=== PATIENT | male | born 1950 | race Caucasian/White ===

== ENCOUNTER 2018-08-04 05:07 | Inpatient (IN) ==
[2018-08-04] MEDS ORDERED: Chlorhexidine 4% Topical 120 APPLIC/120 ML Bottle TOPICAL SCH (05:45)
[2018-08-04] MEDS ORDERED: Chlorhexidine Gluconate 2% 1 Pack (2 Cloths) TOPICAL ONE (06:00)
[2018-08-04] MEDS ORDERED: Metoprolol Tartrate 25 MG Tablet PO ONE (06:00)
[2018-08-04] MEDS ORDERED: Sodium Chlor 0.9% Inj 500 ML IV.CONT ONE (06:00)
[2018-08-04] MEDS ORDERED: ceFAZolin 2 GM Premix Inj 2 GM/50 ML PIGGYBACK IV.SIG SCH (06:00)
[2018-08-04] MEDS ORDERED: Famotidine PF Inj 20 MG/2 ML Vial ONE (06:17)
[2018-08-04] MEDS ORDERED: Propofol Inj 500 MG/50 ML Vial ONE (06:17)
[2018-08-04] MEDS ORDERED: Ropivacaine 0.5% PF Inj 20 ML Vial ONE (06:22)
[2018-08-04] MEDS ORDERED: fentaNYL Citrate Inj 250 MCG/5 ML Ampul ONE (06:41)
[2018-08-04] MEDS ORDERED: fentaNYL Citrate Inj 100 MCG/2 ML Ampul ONE (06:41)
[2018-08-04] MEDS ORDERED: Phenylephrine/NS 1000 MCG/10ML Syringe IV.PUSH ONE (06:41)
[2018-08-04] MEDS ORDERED: Lidocaine PF 1% Inj 5 ML Syringe OTHER ONE (06:41)
[2018-08-04] MEDS ORDERED: SODIUM CHLOR 0.9% IV.SIG SCH ×2 (07:00→10:00)
[2018-08-04] MEDS ORDERED: TRANEXAMIC ACID IV.SIG SCH ×2 (07:00→10:00)
[2018-08-04] MEDS ORDERED: Sodium Chlor 0.9% Inj 80 ML, Bupivacaine Liposo PF 1.3% Inj 20 ML P-ARTICULR SCH ×2 (07:00)
[2018-08-04] MEDS ORDERED: Sugammadex Inj 200 MG/2 ML Vial IV.PUSH ONE (08:58)
[2018-08-04] MEDS ORDERED: Acetaminophen 325 MG Tablet PO PRN (10:05)
[2018-08-04] MEDS ORDERED: Bisacodyl 10 MG Supp RECTAL PRN (10:05)
[2018-08-04] MEDS ORDERED: Tranexamic Acid Inj 0 MG in Sodium Chlor 0.9% Inj 100 ML IV.SIG ONE (10:05)
[2018-08-04] MEDS ORDERED: Post-op Orders (for Pharmacy) OTHER STA (10:05)
[2018-08-04] MEDS ORDERED: Aluminum/Magnesium/Simethacone Susp 30 ML UDC PO PRN (10:05)
--- NOTE | 2018-08-04 10:31 | P.OP ---
- Preoperative Diagnosis (1) Primary osteoarthritis of right knee Comment: [place] allergy - Postoperative Diagnosis (1) Primary osteoarthritis of right knee Comment: [place] allergy Date of procedure: 08/04/18 Procedure: Right total knee arthroplasty using Merino and Nephew Journey, cemented. Anesthesia: GETA, regional (Adductor canal block), local (Exparel) Surgeon: Lázaro Arnold MD Roving Weight Gauger: LONG Leigh Estimated blood loss (mL): 200 Tourniquet time (min): 0 Pathology: none sent Operation and Findings: Indications and Findings: This 68-year-old man has had long-standing right knee pain nonresponsive to conservative measures including ambulatory aids, intra- articular corticosteroids, analgesics, activity modification, exercise. He cannot take nonsteroidal anti-inflammatory agents because of anticoagulation. He has a 2-block ambulation tolerance. He has difficulty standing from a seated position and ascending and descending stairs. He has giving way. He has swelling. He also has a history of a cobalt allergy. Physical findings showed genu valgum with medial laxity, medial tenderness and crepitation throughout the entire range of motion. There was a large effusion. X-rays showed severe osteoarthritis with loss of articular cartilage to [id number] in the medial compartment with osteophytes and eburnation. Operative findings: There was severe osteoarthritis in the right knee with loss of articular cartilage to [id number] in the medial compartment, irregularity in the patellofemoral and lateral compartments, osteophytes and subchondral sclerosis. The prosthesis used was a Merino and Nephew Journey prosthesis. The femur was a size 6 bicruciate stabilized Journey II BCS Oxinium. The tibial baseplate was a size 6 Journey with a right size 5-6, 11 mm Journey II BCS XLPE spacer. The patella was a size 35 mm oval Thuy II resurfacing. After a regional anesthetic by adductor canal block was administered, the patient was brought to the clean-air operating suite. A general endotracheal anesthetic was administered. The position was supine with a small bolster under the hip on the operative side. A pneumatic tourniquet was applied to the upper thigh. The lower extremity was prepped with alcohol, Hibiclens and ChloraPrep and draped in the usual manner with the knee draped free. An appropriate timeout procedure was carried out. An incision was made from about 3 fingerbreadths above the superior medial pole of patella down the tibial tubercle on the medial side. The incision was deepened through the subcutaneous tissue to the retinacular structures which were exposed medially and laterally. A medial retinacular incision was made from the superior middle pole of patella down the tibial tubercle and up into the quadriceps tendon splitting it longitudinally and the medial one third. The patella was reflected. The infrapatellar fat pad was debulked. The anterior cruciate ligament was excised. Medial and lateral meniscectomies were initiated. A fenestration was made in the distal femur for intramedullary referencing guide. The posterior surface of the patella was excised with the oscillating saw. The distal femoral cutting guide and jig were assembled for a 5 cut. When this was in position, the cutting block was stabilized with pins. The jig was removed. The distal femoral cut was completed with the oscillating saw. The proximal tibia was exposed. The medial and lateral meniscectomies were completed.The proximal tibial cutting guide was positioned in place and stabilized with a pin for rotation. The depth of cut was verified with a stylus off the lateral side. The cutting block was stabilized with pins. The jig was removed. The depth of cut was verified and adjusted appropriately. The proximal tibial cut was made with the oscillating saw taking care to prevent injury to neurovascular and ligamentous structures. Proximal tibial bone was removed. The sizing guide was positioned in place along [place] line and the epicondylar axis and stabilized with pins. The femoral size was determined as noted above. The distal femoral cutting block was positioned in place. Anterior and posterior cuts were made followed by posterior and anterior chamfer cuts taking care to prevent injury to ligamentous structures. Osteophytes were trimmed from the distal femur. A bone plug was placed into the fenestration of the distal femur. Local anesthetic was administered with Exparel in the posterior capsule. The tibial baseplate trial was positioned in place. After verifying the appropriate size, the base plate trial was positioned in place along with its spacer. The femoral component was impacted into place. The alignment was checked. The tibial baseplate was pinned in place on the tibia. Attention was directed to the patella. The patella drill guide was positioned in place for the appropriate sized patella. Patellar drilling was carried out. The trial patella was positioned in place. The knee was taken through a range of motion which was easily 0 extension to 140. The patella trial was removed. The femoral drill holes were made. The femoral trials were removed. The tibial spacer was removed. The tibial punch was impacted through the proximal tibial punch guide. At this point, it was found that there was contamination of the insertion device for the femur. For this reason, it was elected to do a cruciate sacrificing prosthesis. The femoral component was reapplied to the femur. The reaming was carried out for this followed by the punch. The remnants of the posterior cruciate ligament were removed. Further dissection was carried out. Re-trialing was carried out. This appeared satisfactory. The cut ends of bone were cleaned with pulse lavage. Simplex cement was pressurized into the proximal aspect of the tibia after drying. The tibial baseplate was impacted into place and seated appropriately. Excess cement was trimmed. The spacer was inserted. The distal end of the femur was cleaned with pulse lavage. After drying, cement was applied to the distal end of the femur and the femoral component. The femoral component was then impacted into place and seated appropriately. Excess cement was trimmed. The posterior surface of the patella was cleaned with pulse lavage. Cement was injected into the posterior surface of the patella and the patella component. The patella component was seated with the patellar clamp and tightened appropriately. Excess cement cement was trimmed. The remainder of the Exparel was injected throughout the knee as a local anesthetic. Drains were brought out the superior lateral aspect of the suprapatellar pouch. The knee was taken through a range of motion which was comparable to the previous range of motion with excellent stability in flexion and extension and appropriate patellofemoral tracking. Wound closure commenced using #1 Vicryl interrupted ibqwxh-wz-oijhi sutures and a continuous barbed suture for the capsular and fascial structures, 2-0 Vicryl interrupted simple sutures with buried knots for the subcutaneous tissues and 4-0 Monocryl, continuous subcuticular closure for the skin. The wound was dressed with Dermabond Prineo followed by Optifoam silver impregnated dressing. Sterile soft roll with a cooling pad and Brian bandage from the base of the toes to mid thigh were then applied. The patient was transferred from the operating room to the recovery room in satisfactory condition having tolerated procedure well. Counts were correct. Specimens: None. Estimated blood loss: 200 mL
--- NOTE | 2018-08-04 10:33 | P.DCO ---
- Physical Therapy Physical Therapy: Gait training Knee: Total knee, Protocol: Right, Gait training, Full weight bearing Right Lower Extremity Weight Bearing: Weight bearing as tolerated Right Lower Extremity Range of Motion: Active ROM (Active, active assisted, passive range of motion. Range of motion goal is 0 degrees extension to 135 degrees of flexion. Range of motion achieved in the operating room was 0 degrees extension to 140 degrees of flexion.) - Nursing Nursing: Dressing changes (Do not remove Dermabond Prineo (the tape that is directly on the wound).Leave the Optifoam dressing in place for 7 days. After this, daily dressing changes will be done taking care to avoid injuring or removing the Dermabond Prineo.) Dressing changes: Other (Do not remove Dermabond Prineo (the tape that is directly on the wound).Leave the Optifoam dressing in place for 7 days. After this, daily dressing changes will be done taking care to avoid injuring or removing the Dermabond Prineo.) - Case Management Consult Case Management Consult-Home Health: Yes - Certification Need for Home Health services: I have seen patient Corey Levine on 08/04/18. My clinical findings support the need for the requested home health care services because: Need for Home Health Services: Deconditioned with increased weakness, Limited ability to care for self, High risk of falls Homebound Certification: I certify that my clinical findings support that this patient is homebound because: Homebound Certification: Post-op weakness, Unsteady gait/balance, Unsafe to leave home unassisted
[2018-08-04] MEDS ORDERED: *Meperidine Inj 25 MG/ML Vial PERIprocedural Use ONLY ONE (10:43)
[2018-08-04] MEDS ORDERED: *morphine SULFATE 4 MG/ML PERIprocedure ONLY ONE ×2 (11:07→11:30)
[2018-08-04] MEDS: Ketorolac Inj 30 MG/ML (IVP) Vial IV.PUSH SCH ×3 (11:30→22:38)
--- NOTE | 2018-08-04 11:32 | XR ---
EXAM DATE: 08/04/2018 11:29 AM EST AGE/SEX: 68 years / Male INDICATIONS: Post-op right knee. CLINICAL DATA: This is the patient's initial encounter. Patient reports that signs and symptoms have been present for 1 day and indicates a pain score of Nonresponsive. MEDICAL/SURGICAL HISTORY: None. None. COMPARISON: No prior exams available for comparison. FINDINGS: The patient is post right knee arthroplasty. Orthopedic hardware is in excellent position. There is a surgical drain in place. CONCLUSION: The orthopedic hardware is in excellent position. Electronically signed by: Omar Ruiz MD Board Certified Radiologist 08/04/2018 11:31 AM EST
[2018-08-04] MEDS: ceFAZolin Inj 1 GM in Sodium Chlor 0.9% Inj 100 ML IV.SIG SCH ×2 (12:30→17:39)
--- NOTE | 2018-08-04 15:47 | P.CONIM ---
History of Present Illness Service: [facility] Consult date: 08/04/18 Requesting Physician: Lázaro Arnold Reason for Consult: Assist with medical management Primary Care Provider: Praneeth Lua DO Chief Complaint: None History of Present Illness: Patient is a 68-year-old male with medical history of HTN, HLD, stent placement, borderline diabetes, obesity, right knee osteoarthritis who came in for elective surgery. Patient is status post right total knee arthroplasty by Dr. Arnold. Patient seen and examined today. Reports he is doing okay. States that he has been out of bed and ambulating with physical therapy earlier. States that he had previous knee surgery and that he knows what to do postop. States that he recently moved to the area and is now seeing Dr. Lua in [facility]. for his primary care doctor and Dr. Live being his rn clinical resource. Verified his past medical history including being borderline diabetes. Patient states that about a week ago he was in the emergency department here at [facility] for complaints of foot pain or initially to have thought it was gout, have seen podiatry and had steroid injections x2 and has been following up in the outpatient setting. Otherwise, denies pain and discomfort. Denies SOB/ dyspnea. Denies chest pain , palpitations, headaches, dizziness. Denies fevers, chills, n/v/d. Denies dysuria. Review of Systems Review of Systems: all other systems reviewed are negative [facility] Medical History Medical History Arthritis (Acute) Diabetes (Acute) FHx: total knee replacement (Acute) Gout (Acute) HTN (hypertension) (Acute) Joint pain (Acute) Surgical History Surgical History History of fusion of cervical spine (Acute) Hx of heart artery stent (Acute) Family History Family History Mother Lung cancer Lung disease Father Lung disease Other Parents Social History Social History Substance History: No History of Abuse Second Hand Smoke Exposure: No Smoking Status: Former smoker Tobacco Type: Cigarettes How Often Do You Have a Drink Containing Alcohol: 4 or more times a week Recent Travel in [facility] within the Last 8 Weeks: No Recent Out of Country Travel within the Last 8 Weeks: No Immunization History Tetanus Immunization: Unsure Tetanus Immunization Year if Known: 2015 Hx Influenza Vaccine This Season: Yes Medications and Allergies Allergies Allergy/AdvReac Type Severity Reaction Status Date / Time celecoxib [From Celebrex] Allergy Severe Hives Verified 08/04/18 05:52 cobalt Allergy Rash Verified 08/04/18 06:28 Home Medications Medication Instructions Recorded Confirmed Type aspirin [Aspirin Low Dose] 81 mg PO DAILY 07/31/18 07/31/18 History atorvastatin 80 mg PO DAILY 07/31/18 08/04/18 History clopidogrel [Plavix] 75 mg PO DAILY 07/31/18 07/31/18 History famotidine 40 mg PO DAILY 07/31/18 08/04/18 History isosorbide mononitrate 60 mg PO DAILY 07/31/18 08/04/18 History lisinopril 10 mg PO DAILY 07/31/18 08/04/18 History metformin 500 mg PO DAILY 07/31/18 08/04/18 History metoprolol tartrate 25 mg PO DAILY 07/31/18 08/04/18 History Active Medications: Active Medications Acetaminophen (Tylenol) 650 mg PO Q6H PRN PRN Reason: Pain Less Than 3 On Scale Hydrocodone Bitart/Acetaminophen ([place] 7.5/325) 1 tab PO Q4H PRN PRN Reason: PAIN SCALE 4 TO 6 MODERATE Hydrocodone Bitart/Acetaminophen ([place] 7.5/325) 2 tab PO Q6H PRN PRN Reason: PAIN SCALE 7 TO 10 SEVERE Last Admin: 08/04/18 12:38 Dose: 2 tab Al Hydrox/Mg Hydrox/Simethicone (Mag-Al Plus Susp Liq) 30 ml PO Q6H PRN PRN Reason: INDIGESTION Al Hydroxide/Mg Hydroxide (Milk Of Magnesia Liq) 30 ml PO BID PRN PRN Reason: Mild Constipation Aspirin (Ecotrin) 81 mg PO DAILY NORMA Atorvastatin Calcium (Lipitor) 80 mg PO DAILY [facility] Bisacodyl (Dulcolax Supp) 10 mg RECTAL DAILY PRN PRN Reason: SEVERE CONSITIPATION Chlorhexidine Gluconate (Hibiclens 4% Topical) 1 applicatio TOPICAL ONCE NORMA Stop: 08/08/18 05:44 Last Admin: 08/04/18 05:40 Dose: 1 applicatio Clopidogrel Bisulfate (Plavix) 75 mg PO DAILY [facility] Diphenhydramine HCl (Benadryl) 25 mg PO Q6H PRN PRN Reason: ITCHING Famotidine (Pepcid) 40 mg PO DAILY [facility] Cefazolin Sodium/Dextrose (Ancef 2 Gm Premix Inj) 2 gm in 50 mls @ 100 mls/hr IV.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 [facility] Stop: 08/08/18 05:59 Last Infusion: 08/04/18 07:22 Dose: Infused Lactated Ringer's (Lr 1000 Ml Inj) 1,000 mls @ 30 mls/hr IV.CONT .Q24H ONE Stop: 08/05/18 05:59 Last Admin: 08/04/18 05:45 Dose: 30 mls/hr Sodium Chloride (Ns Inj) 500 mls @ 30 mls/hr IV.CONT .[id number] ONE Stop: 08/04/18 22:39 Last Admin: 08/04/18 07:39 Dose: Not Given Cefazolin Sodium 1 gm/ Sodium (Chloride) 100 mls @ 200 mls/hr IV.SIG Q6H [facility] Stop: 08/05/18 00:29 Last Infusion: 08/04/18 13:00 Dose: Infused Lactated Ringer's (Lr 1000 Ml Inj) 1,000 mls @ 80 mls/hr IV.CONT .[id number] [facility] Last Admin: 08/04/18 10:48 Dose: 80 mls/hr Isosorbide Mononitrate (Imdur) 60 mg PO DAILY [facility] Ketorolac Tromethamine (Toradol Inj) 15 mg IV.PUSH Q6H [facility] Stop: 08/06/18 05:01 Last Admin: 08/04/18 11:30 Dose: 15 mg Lactulose (Lactulose Liq) 30 ml PO DAILY PRN PRN Reason: SEVERE CONSITIPATION Lisinopril (Prinivil) 10 mg PO DAILY [facility] Metformin HCl (Glucophage) 500 mg PO DAILY [facility] Metoprolol Tartrate (Lopressor) 25 mg PO DAILY [facility] Morphine Sulfate (Morphine Inj) 2 mg IV.PUSH Q3H PRN PRN Reason: BREAKTHROUGH PAIN Ondansetron HCl (Zofran Odt) 4 mg PO Q6H PRN PRN Reason: NAUSEA OR VOMITING Senna/Docusate Sodium (Desiree-Colace) 1 tab PO BID [facility]MA Sennosides (Senokot) 17.2 mg PO BID PRN PRN Reason: Moderate Constipation Sodium Chloride (Ns Flush) 2 ml IV.FLUSH BID NORMA Sodium Chloride (Ns Flush) 2 ml IV.FLUSH PRN PRN PRN Reason: FLUSH AFTER USING IV ACCESS Zolpidem Tartrate (Ambien) 5 mg PO HS PRN PRN Reason: INSOMNIA Physical Exam Vital signs: Vital Signs 08/04/18 05:57 08/04/18 06:30 08/04/18 10:24 Temperature 98.4 F 98.5 F Pulse Rate 66 80 86 Respiratory Rate 20 12 Blood Pressure 130/84 142/64 H Pulse Oximetry 94 L 96 95 08/04/18 10:30 08/04/18 10:45 08/04/18 11:00 Temperature Pulse Rate 86 82 79 Respiratory Rate 20 12 15 Blood Pressure 136/62 134/69 127/60 Pulse Oximetry 96 93 L 93 L 08/04/18 11:01 08/04/18 11:15 08/04/18 11:30 Temperature 97.7 F Pulse Rate 74 73 Respiratory Rate 13 19 17 Blood Pressure 116/57 L 127/66 Pulse Oximetry 95 96 08/04/18 12:00 Temperature 97.7 F Pulse Rate 72 Respiratory Rate 22 Blood Pressure 133/64 Pulse Oximetry 97 Intake & Output 08/03/18 08/04/18 08/04/18 18:59 06:59 18:59 Intake Total 2340.03 / 2340.03 Output Total 260 / 260 Balance 2080.03 / 2080.03 Weight 120.3 kg 120.3 kg Intake: IV 262.03 / 262.03 Cyklokapron Inj 1,203 MG In NS 112.03 / 112.03 Inj 100 ML @ 200 mls/hr IV.SIG ONCE [facility] Rx#:[id number] Ancef 2 GM Premix Inj 2 gm In 50 / 50 50 ml @ 100 mls/hr IV.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 [facility]MA Rx#:[id number] Ancef Inj 1 GM In NS Inj 100 ML 100 / 100 @ 200 mls/hr IV.SIG Q6H [facility] Rx #:[id number] Oral 240 / 240 Anesthesia Amount 1838 / 1838 Output: Estimated Blood Loss 200 / 200 Wound Drainage 60 / 60 # 1 Right Knee Hemovac 60 / 60 Other: Date of Last Bowel Movement 08/04/18 Weight On Admission 120.3 kg Narrative: GENERAL: This is a pleasant obese male, well-developed patient, in no apparent distress. SKIN: Warm and dry. Left knee previous incision scar. HEENT: Normocephalic. Pupils equal round and reactive. Nose without bleeding. Airway patent. NECK: Trachea midline. CARDIOVASCULAR: Regular rate and rhythm without murmurs, gallops, or rubs. RESPIRATORY: Clear to auscultation. Breath sounds equal bilaterally. No wheezes , rales, or rhonchi. GASTROINTESTINAL: Abdomen soft, non-tender, protuberant. Bowel Sounds normoactive x4. MUSCULOSKELETAL: Extremities without clubbing, cyanosis. Right lower extremity Brian wrap in place with cooling machine on, Hemovac draining sanguinous drain, small NEUROLOGICAL: Awake and alert. No focal neuro deficit. Moves all extremities. Normal speech. Results Imaging Impressions Knee X-Ray 08/04/18 10:03 CONCLUSION: The orthopedic hardware is in excellent position. ABG Impressions Knee X-Ray 08/04/18 10:03 CONCLUSION: The orthopedic hardware is in excellent position. Assessment and Plan (1) Status post total right knee replacement using cement: Code(s): Z96.651 - Presence of right artificial knee joint Status: Acute Plan Patient is a 68-year-old male with medical history of HTN, HLD, stent placement, borderline diabetes, obesity, right knee osteoarthritis who came in for elective surgery. Patient is status post right total knee arthroplasty by Dr. Arnold. Status post total knee arthroplasty by Dr. Arnold Osteoarthritis of the knee -PT eval and treat -Pain management with bowel regimen HTN HLD History of stent placement x2 -Continue home medication atorvastatin, isosorbide, lisinopril, metoprolol -Aspirin, Plavix -Monitor BP trend Borderline diabetes -On metformin at home, restarted DVT prop SCD, per ortho Thank you for this consultation. We will follow patient with you. Code Status: Full code Discussed Condition With: Patient, nursing, Dr. Woo Discharge Planning: DC disposition by primary team
[2018-08-04] MEDS: Morphine Inj 4 MG/ML Vial IV.PUSH PRN ×2 (18:49→22:36)
[2018-08-04] MEDS ORDERED: Zolpidem Tartrate 5 MG Tablet PO PRN (21:00)
[2018-08-04] MEDS: Senna/Docusate Sodium 8.6/50 MG Tablet PO SCH (21:06)
[2018-08-05] MEDS: ceFAZolin Inj 1 GM in Sodium Chlor 0.9% Inj 100 ML IV.SIG SCH (00:14)
[2018-08-05] MEDS: Ketorolac Inj 30 MG/ML (IVP) Vial IV.PUSH SCH ×2 (05:05→10:36)
[2018-08-05 06:27] LABS: Hemoglobin 12.9 gm/dL (13.0-17.0)
--- NOTE | 2018-08-05 06:45 | P.PNOP ---
Subjective Interval history: Postop day #1 He is doing well. He has minimal complaints related to the knee. It is better than it was when he had his other knee. He is tolerating the medication well. Physical therapy reports that the ambulation distance was 80 feet, then 35 feet. The range of motion was 0 degrees of extension to 80 degrees of flexion. Physical Exam Vital signs: Vital Signs 08/04/18 10:24 08/04/18 10:30 08/04/18 10:45 Temperature 98.5 F Pulse Rate 86 86 82 Respiratory Rate 12 20 12 Blood Pressure 142/64 H 136/62 134/69 Pulse Oximetry 95 96 93 L 08/04/18 11:00 08/04/18 11:01 08/04/18 11:15 Temperature Pulse Rate 79 74 Respiratory Rate 15 13 19 Blood Pressure 127/60 116/57 L Pulse Oximetry 93 L 95 08/04/18 11:30 08/04/18 12:00 08/04/18 16:00 Temperature 97.7 F 97.7 F 98.1 F Pulse Rate 73 72 80 Respiratory Rate 17 22 20 Blood Pressure 127/66 133/64 130/61 Pulse Oximetry 96 97 95 08/04/18 19:30 08/04/18 19:45 08/04/18 21:40 Temperature 98.1 F Pulse Rate 83 Respiratory Rate 19 19 19 Blood Pressure 130/62 Pulse Oximetry 94 L 08/04/18 22:52 08/04/18 23:10 08/04/18 23:26 Temperature 98.4 F Pulse Rate 70 Respiratory Rate 18 18 19 Blood Pressure 103/60 Pulse Oximetry 92 L 08/05/18 02:15 08/05/18 04:10 08/05/18 05:31 Temperature 97.7 F Pulse Rate 75 Respiratory Rate 18 19 19 Blood Pressure 130/61 Pulse Oximetry 95 08/05/18 05:34 Temperature Pulse Rate Respiratory Rate 19 Blood Pressure Pulse Oximetry Intake & Output 08/04/18 08/04/18 08/05/18 06:59 18:59 06:59 Intake Total 2440.03 / 2440.03 1100 / 1100 Output Total 660 / 660 450 / 450 Balance 1780.03 / 1780.03 650 / 650 Weight 120.3 kg 120.3 kg Intake: IV 362.03 / 362.03 1100 / 1100 LR 1000 mL Inj 1,000 ML @ 80 1000 / 1000 mls/hr IV.CONT .[id number] [facility] Rx# :[id number] Cyklokapron Inj 1,203 MG In NS 112.03 / 112.03 Inj 100 ML @ 200 mls/hr IV.SIG ONCE [facility]MA Rx#:[id number] Ancef 2 GM Premix Inj 2 gm In 50 / 50 50 ml @ 100 mls/hr 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 His dressing is dry and intact. His neurovascular status is intact. He moves the knee without difficulty. Results - Labs CBC & Chem 7: 08/05/18 06:18 Laboratory Results - last 24 hr 08/04/18 08/05/18 05:45 06:18 Hgb 12.9 L Hct 37.0 L Antibody Screen Negative - Imaging Impressions Knee X-Ray 08/04/18 10:03 CONCLUSION: The orthopedic hardware is in excellent position. The total knee prosthesis appears to be in good position and alignment. - Procedures Right total knee arthroplasty using Merino and Nephew Journey prosthesis on 2018 Assessment and Plan - Ortho Post Op Day # 1 - Problem List (1) Status post total right knee replacement using cement Code(s): Z96.651 - Presence of right artificial knee joint Status: Acute Plan: Continue postop care and PT. - Assessment and Plan Condition: Good. Orthopedically stable. DVT prophylaxis: TEDs, resumption of Plavix and aspirin, sequentials. Discharge plans: Home with home health care. An appointment was scheduled through the office. Prescriptions: [place] 7.5/325; Patient is having significant pain caused by a total knee replacement which will last more than 3 days. Trial of Tylenol has not helped. I believe that it is medically necessary to treat patients pain because it is affecting patients ability to participate in postoperative rehabilitation and perform activities of daily living in a comfortable and efficient manner. I have checked the [facility] database prior to completing the prescription.
--- NOTE | 2018-08-05 07:25 | P.DS ---
Date of admission: 08/04/18 05:07 Primary care physician: Praneeth Lua DO Attending physician on discharge: Lázaro Arnold Anticipated date of discharge: 08/05/18 Brief History from admission: This 68-year-old man has had long-standing pain in his right knee nonresponsive to conservative measures including analgesics, activity modification, exercises , attempts at weight loss. He cannot take anti-inflammatory agents because of anticoagulation. Physical findings showed genu valgum with crepitation in the medial compartment and patellofemoral compartment, palpable osteophytes, medial laxity. X-rays showed severe osteoarthritis with loss of articular cartilage to [id number] in the medial compartment with eburnation and osteophytes throughout the knee. DS: Diagnosis - Discharge Diagnosis (1) Status post total right knee replacement using cement Status: Acute Diagnosis: Principal (2) Primary osteoarthritis of right knee Status: Chronic Diagnosis: Principal DS: Medications - Discharge Medications Prescriptions: hydrocodone-acetaminophen 1 tab PO Q4H PRN 7 Days #42 tab PRN Reason: Pain DS: Summary Hospital Course: The patient was admitted as noted above. The above noted operative procedure was carried out that day. Preoperatively prophylactic antibiotics were administered Ancef according to protocol. These were continued postoperatively. The patient also received tranexamic acid to help with hemostasis according to protocol. In the postanesthesia care unit mechanical methods of DVT prophylaxis in the form of SADIA stockings and sequentials were initiated. Physical therapy was initiated on the day of surgery. On postoperative day #1 physical therapy continued. DVT prophylaxis with Plavix and aspirin was initiated at this time. The patient continued physical therapy throughout the hospitalization. The distance walked and range of motion improved throughout the hospitalization. The patient was discharged on postoperative day 1 with the disposition being to home with home health care. An appointment for follow-up was made prior to admission. - Time Spent with Patient Total time spent providing and/or coordinating discharge services: Less than 30 minutes - Quality: VTE Deep Vein Thrombosis/Pulmonary Embolism Present on Admission: No Exam Vital signs: Vital Signs 08/04/18 10:24 08/04/18 10:30 08/04/18 10:45 Temperature 98.5 F Pulse Rate 86 86 82 Respiratory Rate 12 20 12 Blood Pressure 142/64 H 136/62 134/69 Pulse Oximetry 95 96 93 L 08/04/18 11:00 08/04/18 11:01 08/04/18 11:15 Temperature Pulse Rate 79 74 Respiratory Rate 15 13 19 Blood Pressure 127/60 116/57 L Pulse Oximetry 93 L 95 08/04/18 11:30 08/04/18 12:00 08/04/18 16:00 Temperature 97.7 F 97.7 F 98.1 F Pulse Rate 73 72 80 Respiratory Rate 17 22 20 Blood Pressure 127/66 133/64 130/61 Pulse Oximetry 96 97 95 08/04/18 19:30 08/04/18 19:45 08/04/18 21:40 Temperature 98.1 F Pulse Rate 83 Respiratory Rate 19 19 19 Blood Pressure 130/62 Pulse Oximetry 94 L 08/04/18 22:52 08/04/18 23:10 08/04/18 23:26 Temperature 98.4 F Pulse Rate 70 Respiratory Rate 18 18 19 Blood Pressure 103/60 Pulse Oximetry 92 L 08/05/18 02:15 08/05/18 04:10 08/05/18 05:31 Temperature 97.7 F Pulse Rate 75 Respiratory Rate 18 19 19 Blood Pressure 130/61 Pulse Oximetry 95 08/05/18 05:34 Temperature Pulse Rate Respiratory Rate 19 Blood Pressure Pulse Oximetry Intake & Output 08/04/18 08/05/18 08/05/18 18:59 06:59 18:59 Intake Total 2440.03 / 2440.03 1580 / 1580 Output Total 660 / 660 750 / 750 Balance 1780.03 / 1780.03 830 / 830 Weight 120.3 kg Intake: IV 362.03 / 362.03 1100 / 1100 LR 1000 mL Inj 1,000 ML @ 80 1000 / 1000 mls/hr IV.CONT .[id number] [facility]MA Rx# :[id number] Cyklokapron Inj 1,203 MG In NS 112.03 / 112.03 Inj 100 ML @ 200 mls/hr IV.SIG ONCE [facility]MA Rx#:[id number] Ancef 2 GM Premix Inj 2 gm In 50 / 50 50 ml @ 100 mls/hr IV.SIG PLAY[employer]IAL NORMA Rx#:[id number] Ancef Inj 1 GM In NS Inj 100 ML 200 / 200 100 / 100 @ 200 mls/hr IV.SIG Q6H [facility]MA Rx #:[id number] Oral 240 / 240 480 / 480 Anesthesia Amount 1838 / 1838 Output: Urine 250 / 250 600 / 600 Estimated Blood Loss 200 / 200 Wound Drainage 210 / 210 150 / 150 # 1 Right Knee Hemovac 210 / 210 150 / 150 Other: # Voids 1 Date of Last Bowel Movement 08/04/18 08/04/18 # Bowel Movements 0 Narrative: He is sitting on the side of the bed, comfortably. His dressing is dry and intact. His neurovascular status is intact. He moves the knee without difficulty. Results Procedures completed during hospitalization: Right total knee arthroplasty using [employer] prosthesis on 2018 Labs on day of discharge: Labs from last 24 hours 08/05/18 06:18 Hgb 12.9 L Hct 37.0 L - Impressions ITS Impressions Knee X-Ray 08/04/18 10:03 CONCLUSION: The orthopedic hardware is in excellent position. The total knee prosthesis appears to be in the appropriate position and alignment. Discharge Plan - Discharge Disposition Patient Disposition: W/Home Health Service - Discharge Condition Condition: Stable - Discharge Order Discharge Orders: Discharge Order (Routine); Ordered 08/05/18 Ordered By: Lázaro Arnold - Discharge Details Anticipated Discharge Date: 08/05/18 - Physicians Team Primary Care Provider: Praneeth Lua Attending Provider: Lázaro Arnold Other Providers: Rell Sanchez MD - Rxs /Orders / Referrals /Forms Prescriptions: New hydrocodone-acetaminophen 7.5-325 mg Tablet 1 tab PO Q4H PRN (Reason: Pain) 7 Days Qty: 42 RF: 0 Continue aspirin [Aspirin Low Dose] 81 mg Tablet,Delayed Release (Dr/Ec) 81 mg PO DAILY atorvastatin 80 mg Tablet 80 mg PO DAILY clopidogrel [Plavix] 75 mg Tablet 75 mg PO DAILY famotidine 40 mg Tablet 40 mg PO DAILY isosorbide mononitrate 60 mg Tablet Extended Release 24 Hr 60 mg PO DAILY lisinopril 10 mg Tablet 10 mg PO DAILY metformin 500 mg Tablet 500 mg PO DAILY metoprolol tartrate 25 mg Tablet 25 mg PO DAILY Referrals: Lázaro Arnold MD [Physician] - See Instructions Praneeth Lua DO [Primary Care Provider] - See Instructions - Discharge Instructions Patient Printed Instructions: Knee Replacement (DC)
[2018-08-05] MEDS: Senna/Docusate Sodium 8.6/50 MG Tablet PO SCH ×2 (07:50→10:24)
[2018-08-05] MEDS: Lisinopril 10 MG Tablet PO SCH ×2 (07:50→10:24)
[2018-08-05] MEDS: Famotidine 20 MG Tablet PO SCH ×2 (07:51→10:24)
[2018-08-05] MEDS: Isosorbide Mononitrate 60 MG ER 24HR Tablet (Imdur) PO SCH ×2 (07:51→10:24)
[2018-08-05] MEDS: Metoprolol Tartrate 25 MG Tablet PO SCH ×2 (07:52→10:24)
[2018-08-05 10:05] VITALS: O2SAT 92
[2018-08-05 11:44] VITALS: RESP 18
[2018-08-05 12:25] VITALS: BP 118/66; PULSE 78; TEMP 97.4
--- NOTE | 2018-08-05 12:27 | P.PNIM ---
Subjective Interval history: Follow up for right total knee: Patient seen and examined, sitting at bedside. Pain well controlled, no nausea, no vomiting. No chest pain, shortness of breath. Getting ready to go home today. No acute changes overnight. No fever Physical Exam Vital signs: Vital Signs 08/04/18 16:00 08/04/18 19:30 08/04/18 19:45 Temperature 98.1 F 98.1 F Pulse Rate 80 83 Respiratory Rate 20 19 19 Blood Pressure 130/61 130/62 Pulse Oximetry 95 94 L 08/04/18 21:40 08/04/18 22:52 08/04/18 23:10 Temperature Pulse Rate Respiratory Rate 19 18 18 Blood Pressure Pulse Oximetry 08/04/18 23:26 08/05/18 02:15 08/05/18 04:10 Temperature 98.4 F 97.7 F Pulse Rate 70 75 Respiratory Rate 19 18 19 Blood Pressure 103/60 130/61 Pulse Oximetry 92 L 95 08/05/18 05:31 08/05/18 05:34 08/05/18 08:45 Temperature 97.6 F Pulse Rate 68 Respiratory Rate 19 19 17 Blood Pressure 138/63 Pulse Oximetry 92 L 08/05/18 11:43 08/05/18 12:25 Temperature 97.4 F L Pulse Rate 78 Respiratory Rate 18 18 Blood Pressure 118/66 Pulse Oximetry 92 L Intake & Output 08/04/18 08/05/18 08/05/18 18:59 06:59 18:59 Intake Total 2440.03 / 2440.03 1580 / 1580 Output Total 660 / 660 750 / 750 Balance 1780.03 / 1780.03 830 / 830 Weight 120.3 kg Intake: IV 362.03 / 362.03 1100 / 1100 LR 1000 mL Inj 1,000 ML @ 80 1000 / 1000 mls/hr IV.CONT .[id number] [facility] Rx# :[id number] Cyklokapron Inj 1,203 MG In NS 112.03 / 112.03 Inj 100 ML @ 200 mls/hr IV.SIG ONCE [facility]MA Rx#:[id number] Ancef 2 GM Premix Inj 2 gm In 50 / 50 50 ml @ 100 mls/hr IV.SIG ENTER[employer]UTIVE NORMA Rx#:[id number] Ancef Inj 1 GM In NS Inj 100 ML 200 / 200 100 / 100 @ 200 mls/hr IV.SIG Q6H [facility]MA Rx #:[id number] Oral 240 / 240 480 / 480 Anesthesia Amount 1838 / 1838 Output: Urine 250 / 250 600 / 600 Estimated Blood Loss 200 / 200 Wound Drainage 210 / 210 150 / 150 # 1 Right Knee Hemovac 210 / 210 150 / 150 Other: # Voids 1 Date of Last Bowel Movement 08/04/18 08/04/18 # Bowel Movements 0 Narrative: GENERAL: This is a pleasant obese male, well-developed patient, in no apparent distress. SKIN: Warm and dry. Left knee previous incision scar. HEENT: Normocephalic. Pupils equal round and reactive. Nose without bleeding. Airway patent. NECK: Trachea midline. CARDIOVASCULAR: Regular rate and rhythm without murmurs, gallops, or rubs. RESPIRATORY: Clear to auscultation. Breath sounds equal bilaterally. No wheezes , rales, or rhonchi. GASTROINTESTINAL: Abdomen soft, non-tender, protuberant. Bowel Sounds normoactive x4. MUSCULOSKELETAL: Extremities without clubbing, cyanosis. Right knee with dressing D/I, minimal bruising, expected swelling. Pedal pulses 2+ NEUROLOGICAL: Awake and alert. No focal neuro deficit. Moves all extremities. Normal speech. Results Labs CBC & Chem 7: 08/05/18 06:18 Procedures Procedures: Right total knee arthroplasty using [employer] Journey prosthesis on 08/04/2018 Assessment and Plan (1) Status post total right knee replacement using cement: Code(s): Z96.651 - Presence of right artificial knee joint Status: Acute (2) Primary osteoarthritis of right knee: Code(s): M17.11 - Unilateral primary osteoarthritis, right knee Status: Chronic Plan Patient is a 68-year-old male with medical history of HTN, HLD, stent placement, borderline diabetes, obesity, right knee osteoarthritis who came in for elective surgery. Patient is status post right total knee arthroplasty by Dr. Arnold. Status post total knee arthroplasty by Dr. Arnold Osteoarthritis of the knee -PT eval and treat -Pain management with bowel regimen -doing well post op, HH stable. HTN HLD History of stent placement x2 -Continue home medication atorvastatin, isosorbide, lisinopril, metoprolol -Aspirin, Plavix -Monitor BP trend Borderline diabetes -On metformin at home, was restarted DVT prop SCD, per ortho Stable, ok for dishcarge Code Status: Full code Discussed Condition With: RN, pt, CM Dr. Rima Sanchez Discharge Planning: Ok for dc today with [facility] Ortho managing discharge Progress Note: Quality VTE Deep Vein Thrombosis/Pulmonary Embolism Present on Admission: No
== END 2018-08-05 14:09 | disposition home health service (06) | DRG 470 ==
LOC: HSDI 05:07 → N06 11:54
PROVIDERS: ADMIT Orthopaedic Surgery; ATTEND Orthopaedic Surgery
CPT/HCPCS: 73560; 85014; 85018; 86850; 86900; 86901; 94150; 97110; 97116; 97150; 97162; 97165; C1776; C9290; J0131; J0690; J1580; J1885; J2175; J2250; J2270; J2370; J2704; J2795; J3010; J7120; L1830